=== PATIENT | female | born 1970 ===

== ENCOUNTER 2020-07-23 11:30 | Outpatient (RCR) | payer OTHER, SELFPAY ==
--- NOTE | 2020-07-14 13:49 | PC.NURSE ---
Called patient and scheduled nursing assessment with her at 1340. Called pt at 1340 and left a message for her to call me back to complete. Awaiting call back.
--- NOTE | 2020-07-14 15:17 | HO.PS.ADMBH ---
HPI Chief Complaint: depression Sources of Information: patient interviewed and chart reviewed HPI Narrative: I have never slept well. It may be years of my body rebelling against me. I have a sleep study result that is pending. 49 yo female referred for anxiety, depression, passive SI. Prozac [address] for ~4.5 weeks with some relief, specifically anxiety is decreased and heart rate is decreased. Pt unable to identify a specific precipitant to sx, she has been attempting to track triggers. She finds symptoms to be decreased when at work, but increased at home. She believes she carries the stress of her work and experiences the outcome at home. Reports an increase in heart rate, palpitations, ANJU with difficulty returning to sleep, no initial latency symptoms. Reports sleep cycle to be to bed at 9pm, awake at 1am, up for ~1 hour, returns to sleep for ~3 hours and awake for the day by 5am. Palpitations and increase in HR occur in the final round of sleep. Cardiac eval she reports has been negative. Past Psychiatric History: In Pt: Denies Out Pt: Kath Cruz, PCP prescribes Medication Trials: Prozac, Trazodone, Citalopram-pt reports she is not a fan of psychopharmacology. Participates in acupuncture, massage therapy and eastern medicine healing practices. Denies hx of yamilka, OCD Hx of panic in her 20's-attended one group for education Mar 2020 to ER for increase in HR-given a beta albin and told she was having a panic attack. Medical Evaluation Reviewed: No (NA) REPLACED BY [facility] Medical History (Updated 07/15/20 @ 10:08 by Mikaela Hoskins APRN) Femoral hernia JOE (generalized anxiety disorder) Hypertension Recurrent major depression Narrative: Pt reports cardiac evaluation of palpitations and tachycardia is negative. She has completed full cardiac eval, holter monitor, EKGs x 3-4 and lab eval she reports. Family History: Alcoholism Substance Dependence Social History: Lives alone, works in management with [employer] Substance History: Alcohol on occasion Trauma History: Denies Meds/Allergies Meds Narrative: Prozac 10 mg daily Amlodipine 10 mg daily Allergies Allergies Allergy/AdvReac Type Severity Reaction Status Date / Time No Known Allergies Allergy Verified 07/14/20 09:26 Mental Status Exam Mental Status Exam Patient Appearance: Well Grooomed and Appropriate Patient Orientation: Person, Place, Time and Situation Level of Consciousness: Awake, Appropriate and Alert Patient Behavior: Appropriate, Guarded (mild-not a fan of medication for sx mgt. she reports), Cooperative, Anxious and Good Eye Contact Mood Description: Constricted and Anxious Affect Description: Constricted Patient Cognition Impaired: No Ability to Follow Directions: Excellent Speech Pattern: Clear, Appropriate and Spontaneous Speech Memory Description: Intact Hallucinations: None Delusions: Not Present Thought Process: Intact Thought Content: positive for Intact and positive for Goal Oriented Depressive Symptoms: Increased Anxiety, Insomnia, Difficulty Sleeping and Significant Weight Loss (planned-15 lbs since March to improve my health. ) Judgement: Good Assessment & Plan Assessment & Plan (1) JOE (generalized anxiety disorder): Status: Acute Code(s): F41.1 - Generalized anxiety disorder Assessment and Plan: -continue PHP plan of care (2) Recurrent major depression: Status: Acute Code(s): F33.9 - Major depressive disorder, recurrent, unspecified Assessment and Plan: -Trial of Mirtazapine 3.75 - 7.5 mg hs to assist with improving sleep. Patient educated on: medication risk/benefits and therapeutic strategies Informed Consent: understands and further education needed Reason for continued partial hosp. stay Substantial Risk for: inability to function and rapid decompensation Certification I certify that partial hospital treatment is medically necessary due to the symptoms and problems resulting from the patient's mental illness and the failure to treat the patient at the partial hospital level of care would likely result in the patient requiring inpatient psychiatric care which could not be prevented at a less intensive level of care.
--- NOTE | 2020-07-15 09:11 | PC.ADMIT ---
Patient is a 49 year old female who was referred to the PHP program by her therapist d/t severe anxiety causing inability to focus at work. Patient has not been able to sleep as well. Patients symptoms have prompted patient to take FMLA from work so she can concentrate on her mental health. Pt also reports poor sleep. She is alert and oriented x4. Calm and cooperative. Taking medications as prescribed. Medications reconciled with patient and patient's pharmacy. Patient denied SI. Reports anxiety has been severe and she has experienced heart palpitations during the night. Pt reports that she sleeps 6 hrs on occasion 8 hrs however wakes up frequently and is unable to get back to sleep for 2-3 hours. Reports that she had an in home sleep study done on Sunday and is awaiting the results to r/o possible medical issues. Patient denied SI. Patient gave verbal permission to email her a copy of her safety plan and agrees to utilize this if feeling unsafe. Patient also has the crisis number. Denied substance issues. On occasion she reports that she will have one drink however has not had an alcoholic beverage for the past 4-5 weeks d/t starting Prozac. Educated patient on ways she could improve her sleep.
[2020-07-15 09:25] VITALS: BMI 25.4
--- NOTE | 2020-07-21 12:17 | P.PNPSP_ITS ---
Subjective Subjective Date of Service: 07/21/20 Reason For Visit: depression Interim History: Evon reports she continues to experience issues with sleep. She has not trialed Mirtazapine which was given in our last meeting. She has increased Prozac to 20 mg. Medication Compliance: Intermittent Side effects from medications: No Attending Groups: Yes Review of Systems Psychiatric: Reports abnormal sleep pattern, Reports anxiety and Reports depression Mental Status Exam Mental Status Exam Patient Orientation: Person, Place, Time and Situation Level of Consciousness: Awake and Alert Patient Behavior: Guarded Mood Description: Anxious and Apprehensive Affect Description: Constricted Patient Cognition Impaired: No Ability to Follow Directions: Excellent Speech Pattern: Clear, Appropriate and Spontaneous Speech Memory Description: Intact Hallucinations: None Delusions: Not Present Thought Process: Intact Thought Content: positive for Intact Depressive Symptoms: Increased Anxiety, Insomnia and Difficulty Sleeping Judgement: Good Diagnostics Vital Signs (24Hr): Body Mass Index 25.4 Assessment & Plan Assessment & Plan (1) Recurrent major depression: Status: Acute Code(s): F33.9 - Major depressive disorder, recurrent, unspecified Assessment and Plan: Pt has increased Prozac to 10 mg daily. She has declined to trial Mirtazapine given at out last appointment. Insomnia persists she reports. Continue [facility] plan of care. (2) JOE (generalized anxiety disorder): Status: Acute Code(s): F41.1 - Generalized anxiety disorder Assessment and Plan: -Continue Prozac -Continue PHP plan of care Certification I certify that partial hospital treatment is medically necessary due to the symptoms and problems resulting from the patient's mental illness and the failure to treat the patient at the partial hospital level of care would likely result in the patient requiring inpatient psychiatric care which could not be prevented at a less intensive level of care. Greater than 50% of the session was spent on counseling and/or coordination of care Discharge Plan Discharge Attending provider: Eladio Bright Medications: New mirtazapine 7.5 mg tablet 7.5 mg PO BEDTIME MDD 3.75 - 7.5 Bedtime as needed PRN (Reason: insomnia) Qty: 10 RF: 0 No Action amlodipine 10 mg Tablet 10 mg PO DAILY RF: 0 fluoxetine [Prozac] 10 mg Capsule 10 mg PO DAILY RF: 0 Telehealth Telehealth Location of provider rendering services: practice address Location of patient: address on file Patient Identification confirmed using: Name, : Yes Telehealth method: voice only Patient verbally consented to treatment: Yes Patient verbally consented to billing insurance company: Yes Patient informed of any privacy concerns related to visit: Yes Time spent with patient (mins): 10
== END 2020-07-23 23:55 | disposition home or self-care (01) ==
LOC: HO.PHPA 11:30
PROVIDERS: Visit Provider Psychiatry & Neurology Psychiatry
DX: F33.9 Major depressive disorder, recurrent, unspecified (principal); F41.1 Generalized anxiety disorder
CPT/HCPCS: 90792; 90853; 99211